=== PATIENT | female | born 1990 | race Caucasian/White ===

== ENCOUNTER 2021-07-12 19:00 | Emergency (ER) | payer OTHER ==
[~2021-07-12] VITALS: Ht 152.4 cm; Wt 79.8 kg
[2021-07-12 19:08] VITALS: BP 130/80
[2021-07-12] MEDS ORDERED: NITR100C7 PO (21:56)
--- NOTE | 2021-07-12 21:58 | NUR ---
PT EVALUATED AND CLEARED FOR DISCHARGE BY DR. ESCAMILLA. ALL DISCHARGE INSTRUCTIONS AND MEDICATION ADMINISTRATION PROVIDED BY DR. ESCAMILLA. RX OF MACROBID PROVIDED.
== END 2021-07-12 21:58 | disposition home or self-care (01) ==
LOC: MED 19:00
DX: N39.0 Urinary tract infection, site not specified (principal); Z98.890 Other specified postprocedural states
CPT/HCPCS: 99282